=== PATIENT | female | born 1990 | race Caucasian/White ===

== ENCOUNTER 2020-11-28 01:49 | Emergency (ER) | payer BC ==
[~2020-11-28] VITALS: Ht 170.2 cm; Wt 114.3 kg
[2020-11-28 01:55] VITALS: BP 117/86
[2020-11-28] MEDS ORDERED: methylPREDNISolone SS 125 MG in WATER STERILE 2 ML IM ONE (02:35)
[2020-11-28] MEDS ORDERED: WATER STERILE 10 ML MC ONE (02:38)
[2020-11-28] MEDS ORDERED: methylPREDNISolone SS 125 MG/2 ML VIAL ONE (02:38)
[2020-11-28] MEDS ORDERED: PRED20TA5 PO (02:42)
[2020-11-28] MEDS ORDERED: EPIN1KIT31 IM (02:42)
[2020-11-28] MEDS ORDERED: FAMO-90 PO (02:42)
[2020-11-28 03:30] VITALS: BP 117/86
== END 2020-11-28 03:30 | disposition home or self-care (01) ==
LOC: MED 01:49
DX: L50.0 Allergic urticaria (principal)
CPT/HCPCS: 96372; 99283; J2930